=== PATIENT | female | born 1960 | race Hispanic/Latino ===

== ENCOUNTER → 2017-05-22 | Outpatient (CLI) | payer BC ==
[2017-05-22 10:08] LABS: HEMATOCRIT 42.8 % (37.0-47.0); HEMOGLOBIN 14.6 g/dL (12.0-16.0); RED BLOOD COUNT 4.84 10^6/uL (4.20-5.40)
[2017-05-22 10:09] LABS: MEAN CORPUSCULAR HEMOGLOBIN 30.2 PG (27-31); MEAN CORPUSCULAR HGB CONC 34.1 g/dL (33-37); MEAN CORPUSCULAR VOLUME 88.4 FL (81-99); MEAN PLATELET VOLUME 11.1 FL (7.4-12.2)
[2017-05-22 10:27] LABS: BLOOD UREA NITROGEN 28 mg/dL (7-22); BUN/CREATININE RATIO 31.11 (6-20); CALCIUM 9.3 mg/dL (8.7-10.7); EST GLOMERULAR FILTRATION > 60 (>60 ml/min/1.73m(2)); SERUM ALBUMIN 3.4 g/dL (3.5-4.8)
[2017-05-22 11:01] LABS: FREE T4 (FREE THYROXINE) 1.07 ng/dL (0.93-1.71)
== END ==
LOC: LAB 09:48
PROVIDERS: ATTEND Obstetrics & Gynecology Gynecology
DX: E04.9 Nontoxic goiter, unspecified (principal)
CPT/HCPCS: 36415; 80053; 84439; 84443; 85027

== ENCOUNTER → 2017-05-28 | Outpatient (CLI) | payer BC ==
--- NOTE | 2017-05-28 11:48 | DI ---
US SOFT TISSUE HEAD/NECK,05/28/2017 7:53 AM: Clinical History: Enlarged left thyroid. Previous Exam: None at this facility. Findings: Multiple grayscale and color Doppler sonographic images are obtained through the thyroid. The right thyroid lobe measured 3.6 x 1.5 x 1.8 cm. The left thyroid lobe measured 4.6 x 2.3 x 2.1 cm. The thyroid isthmus measured 4 mm. There is a large hypoechoic macrolobulated complex cyst measuring 3.4 x 2.0 x 1.7 cm. This fills a la rge portion of the left thyroid lobe. Impression: Complex cystic mass within the left thyroid lobe measuring 3.4 x 2.0 x 1.7 cm. There are no definite solid components. Consider cyst aspiration.
== END ==
LOC: US 07:47
PROVIDERS: ATTEND Obstetrics & Gynecology Gynecology
DX: R22.1 Localized swelling, mass and lump, neck (principal); E04.1 Nontoxic single thyroid nodule
CPT/HCPCS: 76536